=== PATIENT | male | born 1940 | race Caucasian/White ===

== ENCOUNTER 2017-10-31 19:50 | Emergency (ER) | payer MEDICARE, OTHER ==
[2017-10-31] MEDS ORDERED: Sodium Chloride 0.9% 10 ML Syringe FLUSH PRN (20:21)
[2017-10-31] MEDS ORDERED: Albuterol/Ipratropium 3.0-0.5 MG/3 ML Neb Soln NEB ONE (20:22)
[2017-10-31 21:54] VITALS: BP 140/61
[2017-10-31] MEDS ORDERED: Azithromycin 500 MG in Sodium Chloride 0.9% 250 ML IV ONE (22:11)
[2017-10-31] MEDS ORDERED: cefTRIAXone 1 GM in Sodium Chloride 0.9% 50 ML IV ONE (22:11)
--- NOTE | 2017-10-31 23:24 | EDM.PDOC ---
ED HPI GENERAL MEDICAL PROBLEM - General Chief Complaint: Respiratory Problem Stated Complaint: SOB Time Seen by Provider: 10/31/17 20:20 Source of Information: Reports: Patient History Limitations: Reports: No Limitations - History of Present Illness INITIAL COMMENTS - FREE TEXT/NARRATIVE: This patient comes in complaining of pneumonia. He was seen in clinic in the walk-in clinic earlier today and diagnosed with pneumonia. He said he had a chest x-ray. He was put on some kind of antibiotic area tonight he feels short of breath. He denies any kind of chest pain. Does have a history of coronary artery disease and previous bypass. He says he lives alone and can't take care of himself right now. He denies any fever. - Related Data Allergies Allergy/AdvReac Type Severity Reaction Status Date / Time No Known Allergies Allergy Verified 10/31/17 19:58 Home Meds: Home Meds Insulin Glargine,Hum.Rec.Anlog [Lantus Solostar] 48 unit SQ DAILY 04/28/13 [ History] Tamsulosin HCl [Flomax] 0.4 mg PO BEDTIME 04/28/13 [History] glipiZIDE [Glipizide ER] 20 mg PO BID 04/28/13 [History] metFORMIN HCl [Fortamet] 1,000 mg PO BID 04/28/13 [History] Amiodarone [Cordarone] 1 tab PO DAILY 10/31/17 [History] Apixaban [Eliquis] 5 mg PO BID 10/31/17 [History] Clopidogrel Bisulfate [Clopidogrel] 75 mg PO DAILY 10/31/17 [History] Finasteride [Proscar] 5 mg PO BEDTIME 10/31/17 [History] Furosemide [Lasix] 40 mg PO BID 10/31/17 [History] Multivitamin [Multivitamins] 1 each PO DAILY 10/31/17 [History] Nitroglycerin [Nitrostat] 0.4 mg SL TID PRN 10/31/17 [History] Potassium Chloride [Klor-Con 10] 10 meq PO BID 10/31/17 [History] Psyllium [Metamucil] 2 tsp PO DAILY 10/31/17 [History] Rosuvastatin Calcium 20 mg PO BEDTIME 10/31/17 [History] Sildenafil Citrate [Sildenafil] 100 mg PO DAILY PRN 10/31/17 [History] amLODIPine [Norvasc] 1 tab PO DAILY 10/31/17 [History] Past Medical History HEENT History: Reports: Cataract, Hard of Hearing Cardiovascular History: Reports: Afib, Bypass, CAD, Heart Failure, High Cholesterol, Hypertension, SOB on Exertion Respiratory History: Reports: COPD, Sleep Apnea Genitourinary History: Reports: Urinary Incontinence Musculoskeletal History: Reports: Arthritis Neurological History: Reports: Neuropathy, Diabetic, Neuropathy, Peripheral Psychiatric History: Reports: Anxiety, Depression, PTSD Endocrine/Metabolic History: Reports: Diabetes, Type II, Obesity/BMI 30+ - Past Surgical History HEENT Surgical History: Reports: Adenoidectomy, Cataract Surgery, Tonsillectomy Cardiovascular Surgical History: Reports: Coronary Artery Bypass GI Surgical History: Reports: Colonoscopy Social & Family History - Tobacco Use Smoking Status *Q: Former Smoker Used Tobacco, but Quit: Yes Month/Year Tobacco Last Used: 1979 - Caffeine Use Caffeine Use: Reports: Coffee - Alcohol Use Days Per Week of Alcohol Use: 0 - Recreational Drug Use Recreational Drug Use: No ED ROS GENERAL - Review of Systems Review Of Systems: See Below Constitutional: Reports: Malaise HEENT: Reports: No Symptoms Respiratory: Reports: Shortness of Breath Cardiovascular: Reports: No Symptoms Endocrine: Reports: No Symptoms GI/Abdominal: Reports: No Symptoms : Reports: No Symptoms Musculoskeletal: Reports: No Symptoms Skin: Reports: No Symptoms Neurological: Reports: No Symptoms Psychiatric: Reports: No Symptoms Hematologic/Lymphatic: Reports: No Symptoms ED EXAM, GENERAL - Physical Exam Exam: See Below Exam Limited By: No Limitations General Appearance: Alert, Mild Distress, Other (Seems mildly dyspneic and have a wet sounding cough) Eye Exam: Bilateral Eye: Normal Inspection Nose: Normal Inspection Throat/Mouth: Normal Oropharynx Head: Atraumatic Neck: Normal Inspection Respiratory/Chest: Crackles (The few bibasilar crackles possibly some rales) Cardiovascular: Regular Rate, Rhythm Peripheral Pulses: 2+: Radial (L), Radial (R) GI/Abdominal: Non-Tender Back Exam: Normal Inspection Extremities: Normal Inspection, No Pedal Edema Neurological: Alert, Oriented Psychiatric: Normal Affect Skin Exam: Warm, Dry Course - Vital Signs Last Recorded V/S: Last Vital Signs Temp 36.8 C 10/31/17 21:15 Pulse 85 10/31/17 21:15 Resp 15 10/31/17 20:47 BP 140/61 10/31/17 21:53 Pulse Ox 96 10/31/17 21:53 - Orders/Labs/Meds Orders: Active Orders 24 hr Category Date Time Status EKG Documentation Completion [RC] ASDIRECTED Care 10/31/17 20:21 Active RT Aerosol Therapy [RC] ASDIRECTED Care 10/31/17 20:22 Active Chest 2V [CR] Urgent Exams 10/31/17 20:36 Taken CULTURE BLOOD [BC] Urgent Lab 10/31/17 20:20 Received CULTURE BLOOD [BC] Urgent Lab 10/31/17 20:20 Received Sodium Chloride 0.9% [Saline Flush] Med 10/31/17 20:21 Active 10 ml FLUSH ASDIRECTED PRN Blood Culture x2 Reflex Set [OM.PC] Urgent Oth 10/31/17 20:21 Ordered Saline Lock Insert [OM.PC] Urgent Oth 10/31/17 20:20 Ordered EKG 12 Lead [EK] Urgent Ther 10/31/17 20:20 Ordered Medication Orders Sodium Chloride (Saline Flush) 10 ml FLUSH ASDIRECTED PRN PRN Reason: Keep Vein Open Last Admin: 10/31/17 20:48 Dose: 10 ml Labs: Laboratory Tests 10/31/17 10/31/17 10/31/17 Range/Units 20:20 20:20 20:20 WBC 15.6 H (4.5-11.0) K/uL RBC 4.91 (4.30-5.90) M/uL Hgb 14.3 (12.0-15.0) g/dL Hct 41.7 (40.0-54.0) % MCV 85 (80-98) fL MCH 29 (27-31) pg MCHC 34 (32-36) % Plt Count 240 (150-400) K/uL Neut % (Auto) 89 H (36-66) % Lymph % (Auto) 3 L (24-44) % [place] % (Auto) 8 H (2-6) % Eos % (Auto) 0 L (2-4) % Baso % (Auto) 0 (0-1) % Sodium 133 L (140-148) mmol/L Potassium 4.4 (3.6-5.2) mmol/L Chloride 95 L (100-108) mmol/L Carbon Dioxide 31 (21-32) mmol/L Anion Gap 11.4 (5.0-14.0) mmol/L BUN 15 (7-18) mg/dL Creatinine 1.2 (0.8-1.3) mg/dL Est Cr Clr Drug Dosing 48.00 mL/min Estimated GFR (MDRD) 59 L (>60) Glucose 102 (74-106) mg/dL Lactic Acid 1.6 (0.4-2.0) mmol/L Calcium 8.3 L (8.5-10.1) mg/dL Total Bilirubin 1.5 H (0.2-1.0) mg/dL AST 71 H D (15-37) U/L ALT 72 D (12-78) U/L Alkaline Phosphatase 80 (46-116) U/L Troponin I 0.190 H* (0.000-0.056) ng/mL NT-Pro-B Natriuret Pep (5-450) pg/mL Total Protein 7.1 (6.4-8.2) g/dL Albumin 3.2 L (3.4-5.0) g/dL Globulin 3.9 H (2.3-3.5) g/dL Albumin/Globulin Ratio 0.8 L (1.2-2.2) /11/14 Range/Units 20:20 WBC (4.5-11.0) K/uL RBC (4.30-5.90) M/uL Hgb (12.0-15.0) g/dL Hct (40.0-54.0) % MCV (80-98) fL MCH (27-31) pg MCHC (32-36) % Plt Count (150-400) K/uL Neut % (Auto) (36-66) % Lymph % (Auto) (24-44) % [place] % (Auto) (2-6) % Eos % (Auto) (2-4) % Baso % (Auto) (0-1) % Sodium (140-148) mmol/L Potassium (3.6-5.2) mmol/L Chloride (100-108) mmol/L Carbon Dioxide (21-32) mmol/L Anion Gap (5.0-14.0) mmol/L BUN (7-18) mg/dL Creatinine (0.8-1.3) mg/dL Est Cr Clr Drug Dosing mL/min Estimated GFR (MDRD) (>60) Glucose (74-106) mg/dL Lactic Acid (0.4-2.0) mmol/L Calcium (8.5-10.1) mg/dL Total Bilirubin (0.2-1.0) mg/dL AST (15-37) U/L ALT (12-78) U/L Alkaline Phosphatase (46-116) U/L Troponin I (0.000-0.056) ng/mL NT-Pro-B Natriuret Pep 577 H (5-450) pg/mL Total Protein (6.4-8.2) g/dL Albumin (3.4-5.0) g/dL Globulin (2.3-3.5) g/dL Albumin/Globulin Ratio (1.2-2.2) Meds: Medications Generic Name Dose Route Start Last Admin Trade Name Freq PRN Reason Stop Dose Admin Sodium Chloride 10 ml 10/31/17 20:21 10/31/17 20:48 Saline Flush FLUSH 10 ml ASDIRECTED PRN Administration Keep Vein Open Discontinued Medications Generic Name Dose Route Start Last Admin Trade Name Freq PRN Reason Stop Dose Admin Albuterol/Ipratropium 3 ml 10/31/17 20:22 10/31/17 20:48 Duoneb 3.0-0.5 Mg/3 Ml NEB 10/31/17 20:23 3 ml ONETIME ONE Administration Azithromycin 500 mg/ Sodium 250 mls @ 250 mls/hr 10/31/17 22:11 10/31/17 22: 30 Chloride IV 10/31/17 23:10 250 mls/hr ONETIME ONE Administration Ceftriaxone Sodium 1 gm/ 50 mls @ 100 mls/hr 10/31/17 22:11 10/31/17 22:23 Sodium Chloride IV 10/31/17 22:40 100 mls/hr ONETIME ONE Administration - Radiology Interpretation Free Text/Narrative:: Chest x-ray shows bibasilar infiltrates and small bilateral pleural effusions area - Re-Assessments/Exams Free Text/Narrative Re-Assessment/Exam: 10/31/17 23:22 EKG shows sinus rhythm at 85 bpm left anterior fascicular block. No ischemic changes. No old EKG for comparison. Patient was placed on oxygen initially at 2 L that was increased to 3 L later sats up to the mid 90s. He was given a DuoNeb treatment which seems to have helped a little bit. Labs blood cultures have been done. He's being started on Rocephin 1 g and azithromycin 500 mg IV. [facility] [place] and because of his elevated troponin they don't think that they could take care of him there. I called [facility] and he was accepted in transfer by Dr. Mueller. And he'll be going to the ICU. Departure - Departure Time of Disposition: 23:24 Disposition: DC/Tfer to [facility] 02 Condition: Serious Clinical Impression: Non-STEMI (non-ST elevated myocardial infarction), Pneumonia, Congestive heart failure - Discharge Information Referrals: PCP,None [Primary Care Provider] - - My Orders Last 24 Hours: My Active Orders 10/31/17 20:20 CULTURE BLOOD [BC] Urgent CULTURE BLOOD [BC] Urgent Saline Lock Insert [OM.PC] Urgent EKG 12 Lead [EK] Urgent 10/31/17 20:21 EKG Documentation Completion [RC] ASDIRECTED Sodium Chloride 0.9% [Saline Flush] 10 ml FLUSH ASDIRECTED PRN Blood Culture x2 Reflex Set [OM.PC] Urgent 10/31/17 20:22 RT Aerosol Therapy [RC] ASDIRECTED 10/31/17 20:36 Chest 2V [CR] Urgent - Assessment/Plan Last 24 Hours: My Active Orders 10/31/17 20:20 CULTURE BLOOD [BC] Urgent CULTURE BLOOD [BC] Urgent Saline Lock Insert [OM.PC] Urgent EKG 12 Lead [EK] Urgent 10/31/17 20:21 EKG Documentation Completion [RC] ASDIRECTED Sodium Chloride 0.9% [Saline Flush] 10 ml FLUSH ASDIRECTED PRN Blood Culture x2 Reflex Set [OM.PC] Urgent 10/31/17 20:22 RT Aerosol Therapy [RC] ASDIRECTED 10/31/17 20:36 Chest 2V [CR] Urgent
== END 2017-11-01 00:19 ==
LOC: JP.ED 19:50
DX: I21.4 Non-ST elevation (NSTEMI) myocardial infarction (principal); J18.9 Pneumonia, unspecified organism; I11.0 Hypertensive heart disease with heart failure; I50.9 Heart failure, unspecified; E11.40 Type 2 diabetes mellitus with diabetic neuropathy, unspecified; E66.9 Obesity, unspecified; J44.9 Chronic obstructive pulmonary disease, unspecified; Z79.899 Other long term (current) drug therapy; Z79.4 Long term (current) use of insulin; Z87.891 Personal history of nicotine dependence
CPT/HCPCS: 36415; 71046; 80053; 83605; 83880; 84484; 85025; 87040; 93005; 94640; 96365; 96367; 99285; J0456; J0696; J7050; J7620